=== PATIENT | male | born 1950 | race Caucasian/White ===

== ENCOUNTER 2019-06-06 05:29 | Day surgery (SDC) | payer MEDICARE ==
[2019-05-27 16:11] LABS: CLARITY,URINE CLEAR (Clear); COLOR,URINE YELLOW (Yellow); GLUCOSE, URINE NEGATIVE (Neg); KETONES,URINE NEGATIVE (Neg); LEUKOCYTE ESTERASE ,URINE NEGATIVE (Neg); NITRITES, URINE NEGATIVE (Neg); OCCULT BLOOD,URINE NEGATIVE (Neg); PROTEIN,URINE NEGATIVE (Neg); UROBILINOGEN,URINE 0.2 E.U/dL (0.2-1.0)
[2019-05-27 16:18] LABS: UA COLLECTION TYPE CLN CATCH MIDSTREAM
[2019-05-27 16:18] LABS: BASOPHILS % (AUTO) 0.6 % (0-1); EOSINOPHILS # (AUTO) 0.2 X10'3 (0-0.9); EOSINOPHILS % (AUTO) 3.2 % (0-6); LYMPHOCYTES # (AUTO) 1.9 X10'3 (1.1-4.8); LYMPHOCYTES % (AUTO) 34.8 % (21-51); MEAN CORPUSCULAR VOLUME 91.4 FL (78-98); MEAN PLATELET VOLUME 8.4 FL (7.4-10.4); MONOCYTES # (AUTO) 0.7 X10'3 (0-0.9); MONOCYTES % (AUTO) 12.3 % (2-12); NEUTROPHILS # (AUTO) 2.6 X10'3 (1.8-7.7); NEUTROPHILS % (AUTO) 49.1 % (42-75); PRE OP HEMATOCRIT 40.8 % (42.0-52.0); PRE OP HEMOGLOBIN 13.8 g/dL (14.0-17.9); PRE OP PLATELET COUNT 256 X10'3 (140-440); PRE OP PROTIME 10.7 SECONDS (9.0-12.0); RED BLOOD COUNT 4.46 X10'6 (4.70-6.10); RED CELL DISTRIBUTION WIDTH 14.3 % (11.5-14.5)
[2019-05-27 16:25] LABS: ALBUMIN 3.8 G/DL (3.4-5.0); ALBUMIN/GLOBULIN RATIO 1.1 (1.1-1.5); ALKALINE PHOSPHATASE 40 IU/L (46-116); BLOOD UREA NITROGEN 18 MG/DL (7-18); BUN/CREATININE RATIO 16.5 (5.4-32.0); CALCIUM 8.7 MG/DL (8.5-10.1); CHLORIDE 107 MMOL/L (99-107); CREATININE 1.09 MG/DL (0.60-1.10); PRE OP ALT 36 U/L (30-65); PRE OP ANION GAP 8 (8-16); PRE OP AST 31 U/L (10-37); PRE OP BILIRUB, TOTAL 0.3 MG/DL (0.0-1.0); PRE OP GLUCOSE 77 MG/DL (70-104); PRE OP SODIUM 141 MMOL/L (135-145); TOTAL CARBON DIOXIDE 26.3 MMOL/L (24-32); TOTAL PROTEIN 7.2 G/DL (6.4-8.2); eGFR 67 ML/MIN
[2019-06-06] VITALS (15 sets, daily range): BP systolic 95–144; BP diastolic 59–108
[~2019-06-06] VITALS: Ht 177.8 cm; Wt 106.9 kg
[~2019-06-06 05:29] MED LIST: ASPI81TA30 PO; ATOR40TA PO; FENO160T13 PO; LISI40TA4 PO; ringers solution, lacted 1,000 ML IV SCH
[2019-06-06] MEDS ORDERED: famotidine 10mg tablet PO ONE (05:30)
[2019-06-06] MEDS ORDERED: cefazolin/dext.iso 2gm/100ml 100 ML IV ONE (05:30)
[2019-06-06] MEDS ORDERED: LIDOcaine 1% (10mg/ml) 2ml vial ONE (05:53)
--- NOTE | 2019-06-06 06:30 | NUR ---
PT NOT HAVING ANY PAIN. WHEN HE DOES HE HAS PAIN AND NUMBNESS FROM THE R KNEE TO TOES. STRONG PUSH PULL BILATERAL FEET
[2019-06-06] MEDS ORDERED: triamcinolone acetonide 40mg/ml inj ONE ×2 (06:43→10:06)
[2019-06-06] MEDS ORDERED: epiNEPHrine 1 mg/ml inj ONE (06:43)
[2019-06-06] MEDS ORDERED: Thrombin (Bovine) 5,000 unit vial TP ONE (06:44)
[2019-06-06] MEDS ORDERED: vancomycin 1,000mg inj ONE (06:44)
[2019-06-06] MEDS ORDERED: BUPIVAcaine/PF 2.5 mg/ml (0.25%) 30ml vial ONE (06:44)
[2019-06-06] MEDS ORDERED: fentaNYL /PF 50mcg/ml 5ml ampule ONE (07:15)
[2019-06-06] MEDS ORDERED: midazolam 2 mg/2 ml injection ONE (07:15)
[2019-06-06] MEDS ORDERED: gentamicin 40 MG/1 ML inj ONE (08:06)
[2019-06-06] MEDS ORDERED: ringers solution, lacted 1,000 ML IV SCH (08:51)
[2019-06-06] MEDS ORDERED: ondansetron/PF 4mg/2ml inj IV PRN (08:55)
[2019-06-06] MEDS ORDERED: proCHLORperazine 10 MG/2 ml inj IV PRN (08:55)
[2019-06-06] MEDS ORDERED: morphine 4 MG/ML inj SYRINge IV PRN ×2 (08:55)
[2019-06-06] MEDS ORDERED: meperidine/PF 25mg/ml syringe IV PRN ×3 (08:55)
[2019-06-06] MEDS ORDERED: mineral oil 10ml sterile, topical TP ONE (09:07)
[2019-06-06] MEDS ORDERED: morphine /PF 1mg/ml 10ml inj. ONE (09:28)
[2019-06-06] MEDS ORDERED: BUPIVACAINE liposomal/PF 13.3 MG/ML vial IM ONE (09:44)
[2019-06-06] MEDS ORDERED: propofol inj 20 ML IV ONE (10:28)
[2019-06-06] MEDS ORDERED: neostigmine methylsulfate 1 MG/ML 10ml vial ONE (10:28)
[2019-06-06] MEDS ORDERED: dexamethasone sod phosphate 4mg/ml inj. ONE (10:28)
[2019-06-06] MEDS ORDERED: rocuronium 10mg/ml inj IV ONE ×2 (10:28→10:42)
[2019-06-06] MEDS ORDERED: LIDOcaine 2% (20mg/ml) 5ml vial ONE (10:28)
[2019-06-06] MEDS ORDERED: glycopyrrolate 0.2mg/ml inj ONE (10:28)
[2019-06-06] MEDS ORDERED: ePHEDrine 50MG/ML INJ. ONE (10:28)
[2019-06-06] MEDS ORDERED: ondansetron/PF 4mg/2ml inj ONE (10:28)
[2019-06-06] MEDS ORDERED: meperidine/PF 50mg/ml syringe ONE (10:48)
--- NOTE | 2019-06-06 11:05 | NUR ---
Received from OR via BED , accompanied by Anesthesiologist DR ASNDHU and report given by Anesthesiolgist. PATIENT WAKING UP, DENIES PAIN, V/S WNL, NEUROVASCULAR CHECKS INTACT, 20G PIV LUE , W/ SCD ON. POSTERIOR T4-5 REGION OF BACK DRESSING CDI
--- NOTE | 2019-06-06 13:05 | NUR ---
PATIENT A&0X4, STATES PAIN TOLERABLE AT THIS TIME, V/S WNL, NEUROVASCULAR CHECKS INTACT, 20G PIV LUE D/C , W/ SCD OFF. POSTERIOR T4-5 REGION OF BACK DRESSING CDI, NEURCHECKS HAVE NO DEFICETS AT THIS TIME EXCEPT FOR SOME MILD NUMBNESS TO RLE WHICH HAS IMPROVED POST OP COMPARED TO PRE OP NUMBNESS PATIENT STATES HE HAD PRIOR TO SURGERY. PATIENT HAS VOIDED AND DR REYNA HAS ORDERED MEDS AND HIS OFFICE SENT SCRIPT TO PATIENTS PHARMACY AND PATIENT IS AWARE OF THIS. I HAVE REVIEWED D/C INSTRUCTIONS WITH PATIENT AND FAMILY AND THEY HAVE VERBALIZED UNDERSTANDING. PATIENT D/C HOME WITH ALL BELONGINGS AND FAMILY GAVE TRANSPORT HOME.
== END 2019-06-06 13:05 | disposition home or self-care (01) ==
LOC: PAS 05:29 → EDSTATUS 07:30 → PAS 13:05
PROVIDERS: ATTEND Orthopaedic Surgery
DX: M54.16 Radiculopathy, lumbar region (principal); Z98.890 Other specified postprocedural states; G43.909 Migraine, unspecified, not intractable, without status migrainosus; E66.9 Obesity, unspecified; Z68.33 Body mass index [BMI] 33.0-33.9, adult; Z79.82 Long term (current) use of aspirin; Z79.899 Other long term (current) drug therapy; Z79.01 Long term (current) use of anticoagulants
CPT/HCPCS: 36415; 63042; 72100; 76000; 80053; 81003; 82948; 85025; 85610; 85730; 86885; 86900; 86901; 86920; C1758; C9290; J0171; J1100; J1580; J2001; J2175; J2250; J2270; J2405; J2704; J2710; J3010; J3301; J3370; J3490; J7030; J7050; J7120; A4215; A4618; A6258; A6449; A7000